=== PATIENT | female | born 1960 | race Caucasian/White ===

== ENCOUNTER 2022-01-28 11:54 | Day surgery (SDC) | payer MEDICAID ==
[2022-01-26 10:54] LABS: BASOPHILS # (AUTO) 0.1 X10'3 (0-0.2); BASOPHILS % (AUTO) 1.4 % (0-1); EOSINOPHILS % (AUTO) 0.7 % (0-6); LYMPHOCYTES # (AUTO) 1.2 X10'3 (1.1-4.8); LYMPHOCYTES % (AUTO) 23.7 % (21-51); MEAN CORPUSCULAR HEMOGLOBIN 33.8 PG (27.0-31.0); MEAN CORPUSCULAR HGB CONC 34.2 g/dL (33.0-36.5); MEAN CORPUSCULAR VOLUME 98.8 FL (78-98); MEAN PLATELET VOLUME 8.2 FL (7.4-10.4); MONOCYTES # (AUTO) 0.4 X10'3 (0-0.9); MONOCYTES % (AUTO) 8.1 % (2-12); NEUTROPHILS # (AUTO) 3.3 X10'3 (1.8-7.7); NEUTROPHILS % (AUTO) 66.1 % (42-75); PRE OP HEMATOCRIT 38.2 % (35.0-45.0); PRE OP HEMOGLOBIN 13.1 g/dL (12.0-16.0); PRE OP PLATELET COUNT 295 X10'3 (140-440); RED BLOOD COUNT 3.87 X10'6 (4.20-5.60); RED CELL DISTRIBUTION WIDTH 13.7 % (11.5-14.5)
[2022-01-26 11:05] LABS: ALBUMIN 3.7 G/DL (3.4-5.0); ALKALINE PHOSPHATASE 70 IU/L (46-116); BLOOD UREA NITROGEN 21 MG/DL (7-18); BUN/CREATININE RATIO 23.9 (6.6-38.0); CALCIUM 8.6 MG/DL (8.5-10.1); CHLORIDE 105 MMOL/L (99-107); CREATININE 0.88 MG/DL (0.40-0.90); PRE OP ALT 23 U/L (30-65); PRE OP ANION GAP 8 (8-16); PRE OP AST 15 U/L (10-37); PRE OP BILIRUB, TOTAL 0.3 MG/DL (0.0-1.0); PRE OP GLUCOSE 94 MG/DL (70-104); PRE OP POTASSIUM 4.1 MMOL/L (3.4-5.1); PRE OP SODIUM 141 MMOL/L (135-145); TOTAL CARBON DIOXIDE 28.2 MMOL/L (24-32); TOTAL PROTEIN 7.4 G/DL (6.4-8.2); eGFR 66 ML/MIN
[~2022-01-28] VITALS: Ht 160 cm; Wt 47.7 kg
[2022-01-28] VITALS (7 sets, daily range): BP systolic 96–141; BP diastolic 55–79
[~2022-01-28 11:54] MED LIST: YOUNG LIVING OILS PO; [UNRECOGNIZED DRUG - OTHER] PO; ceFAZolin inj. 2,000 MG in dextrose 5%-water 100 ML IV ONE; famotidine 20mg tablet PO ONE; ringers solution, lacted 1,000 ML IV SCH
[2022-01-28] MEDS ORDERED: BUPIVAcaine/PF 7.5mg/ml (0.75%) 10ml vial ONE (13:50)
[2022-01-28] MEDS ORDERED: LIDOcaine 1% 30ml preserv. free vial ONE (13:50)
[2022-01-28] MEDS ORDERED: ondansetron/PF 4mg/2ml inj IV PRN (13:55)
[2022-01-28] MEDS ORDERED: fentaNYL/PF 50MCG/1 ML 2ML syringe IV PRN ×2 (13:55)
[2022-01-28] MEDS ORDERED: hydrALAZINE 20mg/ml inj. IV PRN (13:55)
[2022-01-28] MEDS ORDERED: ringers solution, lacted 1,000 ML IV SCH (13:55)
[2022-01-28] MEDS ORDERED: labetalol 20mg/4ml (5mg/ml) syringe IV PRN (13:55)
[2022-01-28] MEDS ORDERED: morphine 4 MG/ML inj SYRINge IV PRN (13:55)
[2022-01-28] MEDS ORDERED: morphine 2 MG/ML inj. syringe IV PRN (13:55)
[2022-01-28] MEDS ORDERED: neostigmine methylsulfate 1 MG/ML 10ml vial ONE (14:00)
[2022-01-28] MEDS ORDERED: glycopyrrolate 0.2mg/ml inj ONE (14:00)
[2022-01-28] MEDS ORDERED: sevoflurane 250ml liquid IH ONE (14:00)
[2022-01-28] MEDS ORDERED: midazolam 1 mg/ML 2ml injection ONE (14:09)
[2022-01-28] MEDS ORDERED: fentaNYL/PF 50MCG/1 ML 2ML syringe ONE (14:09)
[2022-01-28] MEDS ORDERED: LIDOcaine 1%/PF 5ML 10 MG/ML VIAL ONE (14:15)
[2022-01-28] MEDS ORDERED: propofol inj 20 ML IV ONE (14:15)
[2022-01-28] MEDS ORDERED: rocuronium 10mg/ml inj IV ONE (14:15)
[2022-01-28] MEDS ORDERED: ondansetron/PF 4mg/2ml inj ONE (14:15)
[2022-01-28] MEDS ORDERED: dexamethasone sod phosphate 4mg/ml inj. ONE (14:32)
[2022-01-28] MEDS ORDERED: HYDROcodone/acetaminophen 5mg/325mg tablet PO PRN (15:05)
--- NOTE | 2022-01-28 15:06 | NUR ---
Received from OR via [facility], accompanied by Anesthesiologist DR. LOUISE and report given by Anesthesiolgist. PIV TO RIGHT HAND 20G WITH LR RUNNING AT 100ML/HR. VSS. ON 10L NC, SATS 100%. 3 BANDAIDS TO MIDLINE ABDOMEN CDI. SCD'S PRESENT. DENIES PAIN. Addendum: 01/28/22 at 1524 by Bronwyn Escobar RN ANESTHESIOLOGIST DR. MARI
--- NOTE | 2022-01-28 16:06 | NUR ---
PATIENT MEETS DISCHARGE CRITERIA. DISCHARGED HOME WITH [facility]. PATIENT STATES TO HAVE ALL BELONGINGS. IV DC'D. VSS. NO NAUSEA, DENIES PAIN.
== END 2022-01-28 16:06 | disposition home or self-care (01) ==
LOC: PAS 11:54
PROVIDERS: ATTEND Surgery
DX: K41.90 Unilateral femoral hernia, without obstruction or gangrene, not specified as recurrent (principal); Z79.899 Other long term (current) drug therapy; Z98.890 Other specified postprocedural states; Z87.891 Personal history of nicotine dependence; Z91.013 Allergy to seafood
CPT/HCPCS: 36415; 49659; 80053; 82948; 85025; 87811; 93005; C1781; J0690; J1100; J2250; J2270; J2405; J2704; J2710; J3010; J3490; J7030; J7060; J7120; S2900; Z7506; Z7508; Z7512; A4215; A4618